=== PATIENT | male | born 1945 | race Caucasian/White ===

== ENCOUNTER → 2017-03-23 12:55 | Outpatient (CLI) | payer MEDICARE | END | disposition home or self-care (01) | LOC: D.RAD 12:55 | DX: N39.0 Urinary tract infection, site not specified (principal) ==

== ENCOUNTER → 2017-04-12 10:43 | Outpatient (CLI) | payer MEDICARE ==
[~2017-04-12] VITALS: Ht 190.5 cm; Wt 112.3 kg
--- NOTE | ~2017-04-12 | HEMODYNAMI ---
PATIENT:MARISELA SMITH MEDICAL RECORD: [id number] : 47 LOCATION:[facility] ADMISSION DATE: 04/12/17 Generatedon:04/12/201713:04 Patient name: MARISELA SMITH Patient #: [id number] SSN: : 1945 Date of study: 04/12/2017 Page: Of Hemodynamic Procedure Report Patient Data Patient Demographics Procedure consent was obtained First Name: MARISELA Gender: Male Last Name: LUIS : 1945 [facility] Initial: JOSEPH Age: 71 year(s) Patient #: [id number] Race: Unknown Additional ID: [id number] Contact details [address]: [address] [place] [address] State: [place] City: [place] Zip code: [address] Admission Admission Data Admission Date: 04/12/2017 Admission Time: 10:43 Procedure Procedure Types Cath Procedure Diagnostic Procedure LHC LHC w/Coronaries PCI Procedure Coronary Stent Initial Miscellaneous Procedures Moderate Sedation up to 30 minutes Procedure Description Procedure Date Procedure Date: 04/12/2017 Procedure Start Time: 12:30 Procedure End Time: 13:03 Procedure Staff Name Function Flaco Escobar MD Performing Physician Lonny Chin RT Scrub Cait Acevedo RN Nurse Dmitry Lalfeur RT Monitor Procedure Data Cath Procedure Fluoroscopy Diagnostic fluoroscopy Total fluoroscopy Time: 4.2 time: 4.2 min min Diagnostic fluoroscopy Total fluoroscopy dose: 777 dose: 777 mGy mGy Contrast Material Contrast Material Type Amount (ml) Isovue 300 99 Entry Location Entry Primary Successful Side Size Upsize Upsize Entry Closure Succes sful Closure Location (Fr) 1 (Fr) 2 (Fr) Remarks Device Remarks Femoral Right 5 Fr 6 Fr Exoseal artery Short Estimated blood loss: 10 ml Diagnostic catheters Device Type Used For End Catheter Placement Cordis 5Fr JL 4.0 Procedure Catheter (MP) Cordis 5Fr 3DRC Catheter Procedure (MP) Cordis 5Fr Pigtail Procedure Catheter (MP) Procedure Complications No complications Procedure Medications Medication Administration Route Dosage Oxygen NC 2 l/min Heparin Flush Bag added to field 2 bags (1000units/500ml NS) Lidocaine 2% added to field 20 Radial Cocktail added to field 1 syringe (Verapomil 2mg/Nitro 400mcg/Heparin 1500units) Versed I.V. 1 mg Fentanyl I.V. 50 mcg Versed I.V. 1 mg Fentanyl I.V. 50 mcg Heparin Bolus I.V. 5000 units Integrilin (Bolus I.V. 10.2 ml 2mg/ml) Plavix P.O. 600 mg Hemodynamics Rest Heart Rate: 54 (bpm) Pressure Samples Time Site Value (mmHg) Purpose Heart Use Rate(bpm) 12:43 LV 133/-13,14 Snapshot 47 12:44 AO 149/70(99) Pullback 54 12:44 LV 132/6,12 Pullback 54 12:48 AO 154/70(101) Snapshot 50 Gradients Valve Time Site 1 Site 2 Mean SEP/DFP Peak To Heart Use (mmHg) (sec/min) Peak Rate (mmHg) (bpm) Aortic 12:44 LV AO 0 4 0 54 132/6,12 149/70(99) Calculations Valve P-P Mean Valve Index Valve Source Name Gradient Area Flow (cm2) Aortic 0 0 0 0 Snapshots Pre Cath Intra NCS Post Cath Vital Signs Time Heart Resp SPO2 etCO2 EW5ytoc NIBP (mmHg) Rhythm Pain Sedation Rate (ipm) (%) (mmHg) (mmHg) Status Level (bpm) 12:16:39 56 15 99 0 0 169/85(137) SB 0 (11) 10(A) , No pain 12:21:38 52 16 100 0 0 Measuring SB 0 (11) 10(A) , No pain 12:22:01 60 16 99 0 0 172/79(114) SB 0 (11) 10(A) , No pain 12:26:25 49 16 98 0 0 154/81(111) SB 0 (11) 10(A) , No pain 12:30:39 47 16 97 0 0 133/81(100) SB 0 (11) 9(A) , No pain 12:34:57 46 16 95 0 0 129/78(90) SB 0 (11) 9(A) , No pain 12:39:56 46 17 96 0 0 Measuring SB 0 (11) 9(A) , No pain 12:40:02 46 19 96 0 0 131/66(85) SB 0 (11) 9(A) , No pain 12:44:22 45 18 98 0 0 127/69(107) SB 0 (11) 9(A) , No pain 12:49:21 47 19 99 0 0 Measuring SB 0 (11) 9(A) , No pain 12:49:25 47 19 99 0 0 130/74(87) SB 0 (11) 9(A) , No pain 12:53:41 53 18 99 0 0 142/79(92) SB 0 (11) 10(A) , No pain 12:58:02 54 8 99 0 0 143/81(93) SB 0 (11) 10(A) , No pain 13:02:19 52 13 98 0 0 121/71(97) SB 0 (11) 10(A) , No pain Medications Time Medication Route Dose Verified Delivered Reason Note s Effectiveness by by 12:17:45 Oxygen NC 2 l/min Flaco Cait Per physician [facility] Landry Acevedo RN, MD 12:17:54 Heparin Flush added 2 bags Flaco Flaco used for [facility] to [facility] procedure (1000units/500ml field MD HAYES NS) 12:18:03 Lidocaine 2% added 20ml Flaco Flaco used for to vial [place] [facility] procedure field MD HAYES 12:18:11 Radial Cocktail added 1 Flaco Flaco used for (Verapomil to syringe [place] [facility] procedure 2mg/Nitro field MD HAYES 400mcg/Heparin 1500units) 12:24:09 Versed I.V. 1 mg Flaco Cait for sedation [facility] Landry Acevedo RN, MD 12:24:15 Fentanyl I.V. 50 mcg Flaco Cait for anxiety [facility] Landry Acevedo RN, MD 12:27:11 Versed I.V. 1 mg Flaco Cait for sedation [facility] Land[facility] Acevedo RN, MD 12:27:14 Fentanyl I.V. 50 mcg Flaco Cait for anxiety [facility]. Landry Acevedo RN, MD 12:47:28 Heparin Bolus I.V. 5000 Flaco Cait for dose units [facility] Landry Acevedo RN anticoagulation verified MD with dr valdes 12:50:22 Integrilin I.V. 10.2 ml Flaco Cait for wast ed (Bolus 2mg/ml) [facility] Landry Acevedo RN antiplatelet 9.8 mL MD therapy 12:54:48 Plavix P.O. 600 mg Flaco Chavira for [facility] Landry Acevedo RN antiplatelet therapy Procedure Log Time Note 11:50:00 Lonny Chin RT(R) sent for patient. Start room use. 12:00:52 ACC Patient presents with Stable Angina CCS Anginal Class 2--Slight limitation of ordinary activity. 12:00:54 Diagnostic Cath status Elective 12:01:02 Time tracking: Regular hours 12:01:06 Plan of Care:Hemodynamics will remain stable., Cardiac rhythm will remain stable., Comfort level will be maintained., Respiratory function will remain adequate., Patient/ family verbilizes understanding of procedure., Procedure tolerated without complication., Recovers from procedure without complications.. 12:10:33 Patient received from Pre/Post Procedure Room to CCL 1 Alert and oriented. Tansferred to table in Supine position. 12:14:34 Warm blankets applied, and veronica hugger turned on for patient comfort. 12:14:35 Correct patient and procedure confirmed by team. 12:14:36 Signed procedure consent form obtained from patient. 12:14:37 ECG and BP/O2 sat monitors applied to patient. 12:15:24 Vital chart was started 12:17:45 Oxygen 2 l/min NC was administered by Cait Acevedo RN; Per physician; 12:17:54 Heparin Flush Bag (1000units/500ml NS) 2 bags added to field was administered by Flaco Escobar MD; used for procedure; 12:18:03 Lidocaine 2% 20ml vial added to field was administered by Flaco Escobar MD; used for procedure; 12:18:11 Radial Cocktail (Verapomil 2mg/Nitro 400mcg/Heparin 1500units) 1 syringe added to field was administered by Flaco Escobar MD; used for procedure; 12:21:42 Baseline sample Acquired. 12:21:46 Rhythm: sinus bradycardia 12:21:48 Full Disclosure recording started 12:22:01 H&P Date Dictated: 03/29/2017 Within 30 days and on chart., H&P Addendum completed by physician on day of procedure. (MUST COMPLETE FOR ALL OUTPATIENTS). 12:22:01 Pre-procedure instructions explained to patient. 12:22:03 Pre-op teaching completed and patient verbalized understanding. 12:22:05 Family in waiting room. 12:22:06 Patient NPO since Midnight. 12:22:08 Is the patient allergic to Iodine/contrast media? No. 12:22:36 Is patient on blood thinner?No 12:22:38 Patient diabetic? No. 12:22:41 Previous problem with sedation/anesthesia? No ? 12:22:42 Snore? Yes 12:22:43 Sleep apnea? No 12:22:44 Deviated septum? No 12:22:45 Opens mouth fully? Yes 12:22:46 Sticks out tongue? Yes 12:22:51 Airway obstruction? No Asthma 12:22:55 Dentures? No ? 12:22:59 Pre procedure: right dorsailis pedis pulse 1+ Palpable, but thready & weak; easily obliterated 12:23:01 Modified Reji's test Ulnar < 7 seconds 12:23:02 Patient pain scale 0/10 ?. 12:23:06 IV patent on arrival in left forearm with 0.9% NaCl at [facility]. 12:23:08 Lab results completed and on chart. 12:23:11 Right Radial & Right Groin area was prepped with chlora-prep and draped in sterile fashion 12:23:13 Alarms reviewed by R. N. 12:23:13 Sharps counted by scrub and verified by R.N. 12:23:14 --------ALL STOP TIME OUT------ 12:23:15 Final Timeout: patient, procedure, and site verified with staff and physician. All members of the team are in agreement. 12:23:17 Right groin site verified by team. 12:23:20 Physical assessment completed. ASA score P 2 - A patient with mild systemic disease as per Flaco Escobar MD. 12:23:23 Sedation plan: IV Moderate Sedation Versed, Fentanyl 12:23:46 Baseline sample Acquired. 12:24:09 Versed 1 mg I.V. was administered by Cait Acevedo RN; for sedation; 12:24:15 Fentanyl 50 mcg I.V. was administered by Cait Acevedo RN; for anxiety; 12:24:34 Use device set Radial Dx 12:24:35 MBrace Wrist Support opened to sterile field. 12:24:36 Acist Hand Control opened to sterile field. 12:24:37 Acist Manifold opened to sterile field. 12:24:38 Acist Syringe opened to sterile field. 12:24:38 Medline Cath Pack opened to sterile field. 12:24:38 Bag Decanter opened to sterile field. 12:24:40 Tegaderm 4 x 4 opened to sterile field. 12:24:47 St Kendall 260cm J .035 wire opened to sterile field. 12:27:11 Versed 1 mg I.V. was administered by Cait Acevedo RN; for sedation; 12:27:14 Fentanyl 50 mcg I.V. was administered by Cait Acevedo RN; for anxiety; 12:30:51 Procedure started. 12:30:58 Local anesthetic to right radial artery with Lidocaine 2% by Flaco Escobar MD.INITIAL ACCESS ONLY 12:31:47 Zero performed for pressure channel P1 12:35:06 Unable to advance wire due to radial loop. Moving to femoral approach. 12:35:38 Local anesthetic to right femoral artery with Lidocaine 2% by Flaco Escobar MD.ADDITIONAL ACCESS 12:35:56 Terumo 5Fr [place] Sheath opened to sterile field. 12:36:16 Use device set Multipack Set 12:36:18 Diagnostic Infinity 5Fr Multipack catheter opened to sterile field. 12:36:42 A 5 Fr sheath was inserted into the Right Femoral artery 12:39:04 A Cordis 5Fr JL 4.0 Catheter (MP) was advanced over the wire and used for Procedure. 12:39:59 LCA angiography performed. 12:40:01 Catheter exchanged over wire. 12:40:06 A Cordis 5Fr 3DRC Catheter (MP) was advanced over the wire and used for Procedure. 12:41:29 RCA angiography performed. 12:42:05 Catheter exchanged over wire. 12:42:17 A Cordis 5Fr Pigtail Catheter (MP) was advanced over the wire and used for Procedure. 12:43:00 Terumo 6Fr [place] Sheath opened to sterile field. 12:43:00 Merit BasixCompak Inflation Kit opened to sterile field. 12:43:00 Self [place] 300cm 0.014 guide wire opened to sterile field. 12:43:01 Medtronic Launcher 6Fr JL 4.0 guide catheter opened to sterile field. 12:43:55 LV angiography performed. 12:43:56 LV gram done using BILL 12:44:06 EF : 55 % 12:44:08 LV hemodynamics recorded. 12:44:13 Injector settings: Ml/sec: 10, Volume: 20, 12:44:15 Catheter exchanged over wire. 12:45:14 Sheath upsized to a 6 Fr Short. 12:45:50 ACC PCI Site: [facility] has 80% stenosis. 12:45:54 ACC Pre-intervention ROME Flow is 3. 12:47:17 6 Fr JL 4 guide catheter was inserted over the wire 12:47:28 Heparin Bolus 5000 units I.V. was administered by Cait Acevedo RN; for anticoagulation; dose verified with dr valdes 12:48:38 [place] wire advanced. 12:50:22 Integrilin (Bolus 2mg/ml) 10.2 ml I.V. was administered by Cait Acevedo RN; for antiplatelet therapy; wasted 9.8 mL 12:50:27 Wire advanced across lesion. 12:51:53 Inflation Number: 1 A Fik Storestronic Integrity 2.5 X 18 stent was prepped and advanced across the Mid CX. The stent was deployed at 14 SHELDON for 0:45 (min:sec). 12:52:05 ACC Post-intervention ROME Flow is 3. 12:52:06 Stent catheter was removed intact over wire. 12:52:07 Wire removed. 12:52:07 Guide catheter removed. 12:52:17 Cordis 6Fr Exoseal opened to sterile field. 12:52:44 Sheath removed intact; hemostasis achieved with Exoseal to the Right Femoral artery. 12:52:47 Procedure ended.(Physican Out) 12:54:48 Plavix 600 mg P.O. was administered by Cait Acevedo RN; for antiplatelet therapy; 12:57:36 Fluoroscopy time 04.20 minutes. 12:57:41 Flurop Dose total: 777 12:57:41 Fluoroscopy dose: 777 mGy 12:57:54 Contrast amount:Isovue 300 99ml. 12:57:59 Sharps counted by scrub and verified by R.N. 12:58:12 Insertion/operative site no bleeding no hematoma. 12:58:15 Post-op/insertion site Right Femoral artery dressed using a 4 x 4 and Tegaderm. 12:58:20 Post Procedure Pulses reassessed and unchanged 12:58:23 Post-procedure physical assessment completed. ASA score P 2 - A patient with mild systemic disease as per Flaco Escobar MD. 12:58:26 Post procedure rhythm: unchanged. 12:58:29 Estimated blood loss: 10 ml 12:58:31 Post procedure instruction explained to patient.Patient verbalizes understanding. 12:58:32 Patient needs reinforcement of post procedure teaching. 12:58:49 Procedure type changed to Cath procedure, Diagnostic procedure, LHC, LHC w/Coronaries, PCI procedure, Coronary Stent Initial, Miscellaneous Procedures, Moderate Sedation up to 30 minutes 13:00:13 Procedure and supply charges have been captured, reviewed, submitted and are correct. 13:00:17 Procedure Complication : No complications 13:03:06 Vital chart was stopped 13:03:07 See physician's report for complete and final results. 13:03:10 Report given to Pre/Post Procedure Room. 13:03:14 Patient transfered to Pre/Post Procedure Room with Stretcher. 13:03:17 Procedure ended. 13:03:17 Full Disclosure recording stopped 13:03:21 End room use (Document Last) Intervention Summary Intervention Notes Time ActionType Lesion and Equipment Action# Pressure Duration Attributes Used 12:51:53 Place stent Mid CX Medtronic 1 14 00:45 Integrity 2.5 X 18 stent Device Usage Item Name Manufacture Quantity Catalog Hospital Part Current Minimal Lot# / Number Charge Number Stock Stock Serial# Code [facility] 1 140-0250-00 485655 25942 [id number] 5 Wrist Vascular Support Dynamics Acist Hand Acist 1 46325 925773 571545 308712 5 Control Medical Systems Inc Acist Acist 1 97304 973850 673216 108543 5 Manifold Medical Systems Inc Acist Acist 1 24915 498585 593759 529508 20 Syringe Medical Systems Inc Medline Cardinal 1 [id number] 280504 99840 742386 5 Cath Pack Health Bag Microtek 1 2001S 509117 97371 603686 5 Decanter Medical Inc. Tegaderm 4 3M 1 1626W 222532 848435 272288 [address] Kendall 1 959075 564578 619786 198385 30 260cm J .035 wire Terumo 5Fr Terumo 1 [id number] 807296 516679 147054 40 Buffalo Sheath Diagnostic Cardinal 1 [id number] 852646 70684 244568 30 Infinity Health 5Fr Multipack catheter Cordis 5Fr Cardinal 1 668451 5 JL 4.0 Health Catheter (MP) Cordis 5Fr Cardinal 1 617882 5 3DRC Health Catheter (MP) Cordis 5Fr Cardinal 1 246384 5 Pigtail Health Catheter (MP) Terumo 6Fr Terumo 1 SCI174 656295 841881 042099 40 [place] Sheath Merit Merit 1 [id number] 916101 610512 922430 15 netprice.com Medical Inflation Kit Self Self 1 [id number] 678583 078976 701085 1 [place] Vascular 300cm 0.014 guide wire Medtronic Medtronic 1 [id number] 877990 01508 841117 1 Launcher 6Fr JL 4.0 guide catheter Medtronic Medtronic 1 [id number] 670318 043363 5 [id number] Integrity 2.5 X 18 stent Cordis 6Fr Cardinal 1 EX600 744222 177857 598640 10 [facility] Tang [employer] Signature Audit [place] Stage Time Signature Unsigned Intra-Procedure 04/12/2017 Dmitry Lafleur 1:04:03 PM RT(R) Signatures Monitor : Dmitry Lafleur RT Signature : Date : Time : [address] [address]
[~2017-04-12 10:43] MED LIST: BAYER CHEWABLE81 MG PO; FLOMAX0.4 MG PO; LIPITOR20 MG PO; PLAVIX75 MG PO; PROSCAR5 MG PO; SYNTHROID50 MCG PO
[2017-04-12 11:09] VITALS: BP 181/87; Ht 190.5 cm; Wt 112.3 kg
[2017-04-12 11:25] LABS: BASOPHILS 0.3 % (0-2); EOSINOPHILS 1.9 % (0-7); HEMATOCRIT 47.3 % (42.0-54.0); HEMOGLOBIN 16.1 g/dL (13.5-17.5); IMMATURE GRANULOCYTES 0.3 % (0-5); LYMPHOCYTES 21.6 % (15-50); MCH 30.7 pg (26.0-34.0); MCV 90.3 fL (80.0-100.0); MEAN PLATELET VOLUME 11.6 fL (7.4-10.4); MONOCYTES 7.2 % (2-11); NEUTROPHILS 68.7 % (40-80); PLATELET COUNT 190 10x3/uL (130-400); RBC 5.24 10x6/uL (4.20-6.10); RDW 13.1 % (11.5-14.5); WBC 7.4 10x3/uL (4.8-10.8)
[2017-04-12 11:44] LABS: ANION GAP 13.1 mmol/L (8-16); CALCIUM 9.9 mg/dL (8.5-10.1); CARBON DIOXIDE 26.9 mmol/L (21.0-32.0); CREATININE - SERUM 1.2 mg/dL (0.6-1.3)
--- NOTE | 2017-04-12 13:28 | NUR ---
TR BAND TO R/WRIST CDI NO BLEEDING NO HEMATOMA NOTED. 6 FR EXOSEAL R/GROIN CDI NO BLEEDING NO HEMATOMA NOTED. SB RATE 46 BP117/56 CHEST PAIN DENIED FAMILY AT SIDE
--- NOTE | 2017-04-12 13:54 | NUR ---
SB RATE 46 CHEST PAIN DENIED. TR BAND TO R/WRIST CDI NO BLEEDING NO HEMATOMA NOTED. 6 FR EXOSEAL R/GROIN CDI NO BLEEDING NO HEMATOMA NOTED. TOLERATING ORAL FLUIDS WITH NAUSEA DENIED
--- NOTE | 2017-04-12 14:21 | NUR ---
SANDWICH AND SODA TO BEDSIDE. VSS WITH CHEST PAIN DENIED
--- NOTE | 2017-04-12 15:05 | NUR ---
RESTING QUIELTY WITH EYES CLOSED NO DISTRESS NOTED. VSS WILL MONITOR
--- NOTE | 2017-04-12 15:37 | NUR ---
NO CHANGE IN ASSESSMENT VSS WITH NO COMPLAINTS
--- NOTE | 2017-04-12 15:58 | NUR ---
2 CC AIR REMOVED FROM TR BAND WITH NO BLEEDING NO HEMATOMA NOTED. CHEST PAIN IS DENIED
--- NOTE | 2017-04-12 16:19 | NUR ---
REPOSITIONED TO SITTING WITH HOB UP 30 DEGREES. R/GROIN CDI NO BLEEDING NOTED. 2 CC AIR REMOVED FROM TR BAND WITH NO BLEEDING NO HEMATOMA NOTED. CHEST PAIN IS DENIED VSS
--- NOTE | 2017-04-12 16:40 | NUR ---
PIV REMOVED WITH DRESSING APPLIED. TR BAND REMOVED WITH DRESSING APPLIED. NO BLEEDING NO HEMATOMA NOTED. PATIENT DENIED CHEST PAIN UP TO GET DRESSED FOR DISCHARGE HOME WITH AT SIDE
--- NOTE | 2017-04-12 16:55 | NUR ---
VERBAL AND WRITTEN DISCHARGE GONE OVER WITH PATIENT AND BOTH VERBALIZED UNDERSTANDING. CHEST PAIN IS DENIED. 6 FR EXOSEAL R/GROIN CDI. LEFT VIA WC TO PARKING FOR TO DRIVE HOME
--- NOTE | 2017-04-13 09:47 | OP ---
PATIENT NAME: MARISELA SMITH MEDICAL RECORD: [id number] :47 LOCATION:D.[facility] ADMISSION DATE: SURGEON: SHIVA LEWIS MD DATE OF OPERATION: 04/12/2017 PROCEDURE: Left heart catheterization, selective coronary angiography, right femoral artery approach. CATHETERS: A 5-[place] sheath, 5/4 left and right Ganga, 5/4 pig. The procedure was well tolerated. The patient returned to mari, sheath removed. We proceeded immediately to PTCA stenting of the circumflex. FINDINGS: Left ventriculography in 30-degree BILL view: Normal wall motion and normal systolic function. CORONARY ANATOMY: LEFT MAIN: Left main is free of disease. LAD: LAD is free of disease in the diagonal system. CIRCUMFLEX: Has about 80% stenosis in a true OM just after the takeoff of the AV groove circumflex. RIGHT CORONARY ARTERY: Dominant artery, gives rise to PDA, free of disease. IMPRESSION: Normal systolic function, single-vessel disease involving circumflex. PLAN: Intervention of this vessel momentarily. DESCRIPTION OF PROCEDURE: A 5-[place] sheath was changed for a 6-[place] sheath. A JL4 guiding catheter provided good guide catheter support followed by a 300 cm [place] XT wire was placed across the occluded circumflex to this portion of vessel. Stent deployed was a 2.5 x 18 mm Integrity nondrug-eluting stent up to 14 atmospheres. Final injection shows excellent resolution of 80% diffuse stenosis, no significant residual. ROME flow was 3 throughout the procedure. Integrilin was used during the case. Sheath was closed with ExoSeal device. Plavix was loaded in the lab. TRANSINT:[id number] Voice Confirmation ID: [id number] DOCUMENT ID: [id number] SHIVA LEWIS MD at 0947 CC: [id number] DICTATION DATE: 04/12/17 1300 NEEDLE LOOM SETTER: 04/12/173 DEP CLI 04/12/17 [place] [place] [address]
== END | disposition home or self-care (01) ==
LOC: D.CATH 10:43
PROVIDERS: Internal Medicine Interventional Cardiology
DX: I25.119 Atherosclerotic heart disease of native coronary artery with unspecified angina pectoris (principal)

== ENCOUNTER 2017-05-20 05:55 | Day surgery (SDC) | payer MEDICARE ==
[2017-05-19 14:12] LABS: HEMATOCRIT 44.9 % (42.0-54.0); HEMOGLOBIN 15.1 g/dL (13.5-17.5); MCH 30.9 pg (26.0-34.0); MCHC 33.6 g/dL (31.0-37.0); RBC 4.88 10x6/uL (4.20-6.10); RDW 13.7 % (11.5-14.5); WBC 7.3 10x3/uL (4.8-10.8)
[~2017-05-20] VITALS: Ht 190.5 cm; Wt 108.9 kg
[2017-05-20 07:00] VITALS: BP 173/80; Ht 190.5 cm; Wt 108.9 kg
--- NOTE | 2017-05-20 10:45 | NUR ---
550CC OF PINK URINE IN BAG ON ADMIT
--- NOTE | 2017-05-20 11:17 | NUR ---
TRANSFERED TO BED IN OUTPATIENT HE REPORTED NAUSEA BACK TO MY CARE GAVE CRISTINA 4MG IV @1115. CARE RETURNED BACK TO OUTPATIENT
--- NOTE | 2017-05-20 13:10 | NUR ---
ATTEMPTED TO AMBULATE WITHOUT SUCCESS. RIGHT LEG IS STILL TOO NUMB.
--- NOTE | 2017-05-20 14:02 | NUR ---
STOOD AT SIDE OF BED, ABLE TO STAND BUT STATES CANNOT WALK YET. INSTRUCTED ON SITTING ON SIDE OF BED AND MOVING TOES TOWARD FACE AND EXERCISING LEGS. PEPSI CALLED FOR PER REQUEST. DENIES PAIN OR NAUSEA. SHERMAN EMPTIED OF 600ML OF BLOOD TINGED URINE, NO CLOTS NOTED.
--- NOTE | 2017-05-20 14:30 | NUR ---
AMBULATED TO BATHROOM DOOR AND BACK, GAIT STEADY. IV REMOVED INTACT. DISCHARGE INSTRUCTIONS GIVEN. DISCHARGED HOME VIA WC.
== END 2017-05-20 14:30 | disposition home or self-care (01) ==
LOC: D.OPS 05:55 → D.PAN 07:50 → D.OPS 08:00 → D.PAN 08:00 → D.OPS 08:15
PROVIDERS: Anesthesiology
DX: N40.0 Benign prostatic hyperplasia without lower urinary tract symptoms (principal); N32.89 Other specified disorders of bladder; N21.0 Calculus in bladder; Z01.812 Encounter for preprocedural laboratory examination

== ENCOUNTER → 2018-10-07 10:14 | Outpatient (CLI) | payer MEDICARE | END | disposition home or self-care (01) | LOC: D.LAB 10:09 | DX: R97.20 Elevated prostate specific antigen [PSA] (principal) ==

== ENCOUNTER 2018-11-28 12:46 | Emergency (ER) | payer MEDICARE ==
[~2018-11-28] VITALS: Ht 190.5 cm; Wt 100.0 kg
[2018-11-28 12:52] VITALS: Ht 190.5 cm; Wt 100.0 kg
[2018-11-28 13:37] LABS: BASOPHILS 0.4 % (0-2); EOSINOPHILS 1.7 % (0-7); HEMOGLOBIN 15.1 g/dL (13.5-17.5); IMMATURE GRANULOCYTES 0.3 % (0-5); LYMPHOCYTES 13.4 % (15-50); MCH 30.9 pg (26.0-34.0); MCHC 34.3 g/dL (31.0-37.0); MEAN PLATELET VOLUME 11.7 fL (7.4-10.4); NEUTROPHILS 76.2 % (40-80); PLATELET COUNT 221 10x3/uL (130-400); RBC 4.89 10x6/uL (4.20-6.10); RDW 13.3 % (11.5-14.5); WBC 12.1 10x3/uL (4.8-10.8)
[2018-11-28 13:51] LABS: ALBUMIN 3.4 g/dL (3.4-5.0); ANION GAP 13.9 mmol/L (8-16); BILIRUBIN - TOTAL 1.01 mg/dL (0.2-1.3); CALCIUM 9.6 mg/dL (8.5-10.1); CARBON DIOXIDE 26.4 mmol/L (21.0-32.0); CREATININE - SERUM 1.2 mg/dL (0.6-1.3); POTASSIUM - SERUM 4.3 mmol/L (3.5-5.1); PROTEIN - SERUM 7.2 g/dL (6.4-8.2)
[2018-11-28 14:18] LABS: APPEARANCE CLEAR (CLEAR); BACTERIA FEW /hpf (NONE SEEN); BILIRUBIN NEGATIVE (NEGATIVE); COLOR YELLOW (YELLOW); EPITHELIAL CELLS OCC /hpf (0-5); GLUCOSE NEGATIVE (NEGATIVE); KETONE NEGATIVE (NEGATIVE); NITRITE NEGATIVE (NEGATIVE); PROTEIN NEGATIVE (NEGATIVE); RED CELLS - URINE OCC /hpf (0-5); SPECIFIC GRAVITY 1.015 (1.005-1.020); UROBILINOGEN NORMAL (NORMAL); WHITE CELLS - URINE RARE /hpf (0-5)
[2018-11-28] MEDS ORDERED: NORCO 5/325 TAB1 TAB PO (14:27)
[2018-11-28 14:41] VITALS: BP 150/88
[2018-12-05] MEDS ORDERED: NORVASC5 MG PO (10:18)
[2018-12-05] MEDS ORDERED: VENTOLIN HFA18 GM INH (10:19)
[2018-12-05] MEDS ORDERED: ZOFRAN4 MG PO (10:33)
== END 2018-11-28 14:42 | disposition home or self-care (01) ==
LOC: D.ER 12:46
PROVIDERS: Emergency Medicine
DX: C61 Malignant neoplasm of prostate (principal); C78.7 Secondary malignant neoplasm of liver and intrahepatic bile duct; I10 Essential (primary) hypertension

== ENCOUNTER → 2018-11-29 09:38 | Outpatient (CLI) | payer MEDICARE ==
[2018-11-28 12:52] VITALS: BMI 27.5
[~2018-11-29 09:38] MED LIST changes: +NORCO 5/325 TAB1 TAB PO; +NORVASC5 MG PO; +VENTOLIN HFA18 GM INH; +ZOFRAN4 MG PO
== END | disposition home or self-care (01) ==
LOC: D.LAB 09:38
DX: R97.20 Elevated prostate specific antigen [PSA] (principal); Z12.5 Encounter for screening for malignant neoplasm of prostate

== ENCOUNTER → 2018-11-30 10:22 | Outpatient (CLI) | payer MEDICARE ==
[2018-11-28 12:52] VITALS: BMI 27.5
[2018-11-30 11:27] LABS: ALBUMIN 3.7 g/dL (3.4-5.0); BILIRUBIN - DIRECT 0.29 mg/dL (0.00-0.30); BILIRUBIN - INDIRECT 0.65 mg/dL (0.00-1.00); BILIRUBIN - TOTAL 0.94 mg/dL (0.2-1.3); PROTEIN - SERUM 7.2 g/dL (6.4-8.2)
== END | disposition home or self-care (01) ==
LOC: D.LAB 10:22
PROVIDERS: Urology
DX: R16.0 Hepatomegaly, not elsewhere classified (principal)

== ENCOUNTER 2018-12-06 05:20 | Day surgery (SDC) | payer MEDICARE ==
[2018-12-05 11:38] LABS: HEMATOCRIT 44.6 % (42.0-54.0); HEMOGLOBIN 15.6 g/dL (13.5-17.5); MCH 31.2 pg (26.0-34.0); MCV 89.2 fL (80.0-100.0); MEAN PLATELET VOLUME 11.6 fL (7.4-10.4); RDW 13.2 % (11.5-14.5); WBC 8.6 10x3/uL (4.8-10.8)
[~2018-12-06] VITALS: Ht 190.5 cm; Wt 111.1 kg
[2018-12-06 06:23] VITALS: BP 103/79; Ht 190.5 cm; Wt 111.1 kg
--- NOTE | 2018-12-06 09:21 | OP ---
PATIENT NAME: MARISELA SMITH MEDICAL RECORD: [id number] :47 LOCATION:[facility] ADMISSION DATE: SURGEON: BYRON SCHWARZ MD DATE OF OPERATION: 12/06/2018 SURGEON: Byron Schwarz MD ANESTHESIA: TIVA by Charles Huerta CRNA PROCEDURE: Transrectal ultrasound and prostate biopsy. FINDINGS: 54 gram prostate with intraprostatic stones, right-sided hypoechoic areas. SPECIMENS: Prostate biopsy cores. DIAGNOSIS: Elevated PSA 38.75 on 11/29/2018. BLOOD LOSS: Minimal. CLINICAL HISTORY: This is a 73-year-old male, who is seen with a rising PSA. His PSA was 2.8 in 03/27/2017. At that time, he had urinary retention and he underwent a GreenLight TURP. Previously, he had a GreenLight TURP in [place], [place] in 2007. He had been on finasteride and tamsulosin for a long time prior to that. He also had 2 negative prostate biopsies in [place]. The last one was in 2012. There is no family history of prostate cancer. The PSA since 2016 has steadily risen. It was 7.2 in 03/2018 and 28.3 in 09/2018. Finally, in 11/29/2018, it was 38.75. When the PSA was found to have risen, he was offered a transrectal ultrasound and prostate biopsy that the patient kept wanting to check it again and check it again. In the meantime, he would be off to [place] for family vacations. Recently, he developed epigastric and right-sided pain with weakness. He went to the Emergency Room and a CT scan of the abdomen and pelvis showed multiple liver nodules consistent with metastatic cancer and enlarged prostate was also seen. Liver function tests showed an elevated alkaline phosphatase of 167 and ALT is elevated at 69. He is not jaundiced. He comes today for transrectal ultrasound and prostate biopsy for tissue diagnosis. He will also be getting a metastatic workup including a whole body CT scan and CT of the chest. He is not allergic to any medications. He was given Ancef general education professor to the OR. DESCRIPTION OF PROCEDURE: The patient was given IV sedation. He was then placed into dorsal lithotomy position. He was then prepped and draped. The transrectal ultrasound probe was introduced. He has a very tall prostate in terms of anterior-posterior dimension. The prostate is not very long. The prostate size was estimated at 54 grams. Sextant biopsies were obtained with at least 3 specimens from each sextant. Once we obtained all the specimens the procedure was terminated. I will see the patient in followup next week to go over the results with him. TRANSINT:[id number] Voice Confirmation ID: [id number] DOCUMENT ID: [id number] OPERATIVE REPORT [id number] MARISELA SMITH ROBERT S MD at 0921 CC: [id number] DICTATION DATE: 12/06/18 0804 DIRECTOR OF PRODUCT DESIGN: 12/06/18 0906 [facility] [address] [place] [address]
--- NOTE | 2018-12-06 10:06 | NUR ---
0945 UP TO BATHROOM. AMBULATORY WITHOUT DIFFICULTY. VOIDED URINE WITH BRIGHT RED NOTED WELL CLOT. RECTAL PACKING IN PLACE. IV DC'ED WITH CATH INTACT. NO BLEEDING @ SITE. DRESSING. Denise FENG R.N. [id number] DRESSED, AWAKE & ALERT. GIVEN DISCHARGE INFORMATION INCLUDING: RX: NORCO 5/325MG, MED REC, POST PROSTATE BIOPSY D/C INSTRUCTIONS, [facility] D/C INSTRUCTIONS, & RTC APPT. PT & MRS. SMITH VOICED UNDERSTANDING. TO PRIVATE CAR PER WHEELCHAIR BY VOLUNTEER. HOME WITH MRS. SMITH. Denise FENG R.N.
== END 2018-12-06 09:30 | disposition home or self-care (01) ==
LOC: D.OPS 05:20 → D.PAN 07:30 → D.OPS 07:30 → D.PAN 12:45 → D.OPS 12:45 → D.PAN 13:00
PROVIDERS: Anesthesiology
DX: R97.20 Elevated prostate specific antigen [PSA] (principal); Z01.812 Encounter for preprocedural laboratory examination

== ENCOUNTER 2018-12-14 06:50 | Outpatient (CLI) | payer MEDICARE ==
[~2018-12-14] VITALS: Ht 190.5 cm; Wt 111.4 kg
[2018-12-14 07:32] LABS: BASOPHILS 0.3 % (0-2); EOSINOPHILS 2.1 % (0-7); HEMATOCRIT 43.3 % (42.0-54.0); HEMOGLOBIN 14.9 g/dL (13.5-17.5); IMMATURE GRANULOCYTES 0.4 % (0-5); LYMPHOCYTES 18.3 % (15-50); MCH 30.8 pg (26.0-34.0); MCHC 34.4 g/dL (31.0-37.0); MCV 89.5 fL (80.0-100.0); MEAN PLATELET VOLUME 10.7 fL (7.4-10.4); MONOCYTES 7.8 % (2-11); NEUTROPHILS 71.1 % (40-80); PLATELET COUNT 279 10x3/uL (130-400); RBC 4.84 10x6/uL (4.20-6.10); RDW 13.1 % (11.5-14.5); WBC 8.9 10x3/uL (4.8-10.8)
[2018-12-14 07:42] LABS: ANION GAP 14.4 mmol/L (8-16); APTT 33.2 SECONDS (22.8-39.4); CALCIUM 9.5 mg/dL (8.5-10.1); CARBON DIOXIDE 25.9 mmol/L (21.0-32.0); CREATININE - SERUM 1.2 mg/dL (0.6-1.3); INR 1.03 (0.85-1.17); POTASSIUM - SERUM 4.3 mmol/L (3.5-5.1)
[2018-12-14 07:54] VITALS: BP 165/81; Ht 190.5 cm; Wt 111.4 kg
--- NOTE | 2018-12-14 10:00 | NUR ---
5126 SEE POST PROCEDURE CHECKLIST FOR VITAL SIGN TRENDS
--- NOTE | 2018-12-14 10:03 | NUR ---
1000 REG BREAKFAST SERVED. AT SIDE.
--- NOTE | 2018-12-14 10:13 | NUR ---
1005 DRESSING SITE WITHOUT HEMATOMA, ATE 80% BREAKFAST.
--- NOTE | 2018-12-14 11:01 | NUR ---
1100 TO NM BY WC.
== END 2018-12-14 14:05 | disposition home or self-care (01) ==
LOC: D.SP 06:50 → D.NM 08:15 → D.SP 08:15
PROVIDERS: Specialist
DX: R16.0 Hepatomegaly, not elsewhere classified (principal)

== ENCOUNTER → 2018-12-14 18:12 | Outpatient (CLI) | payer MEDICARE ==
[2018-12-14 07:54] VITALS: BMI 30.6
== END | disposition home or self-care (01) ==
LOC: D.LABREF 18:12
DX: Z00.00 Encounter for general adult medical examination without abnormal findings (principal)

== ENCOUNTER → 2019-02-21 12:12 | Outpatient (CLI) | payer MEDICARE ==
[2018-12-14 07:54] VITALS: BMI 30.6
[~2019-02-21 12:12] MED LIST changes: +CIPRO250 MG PO
== END | disposition home or self-care (01) ==
LOC: D.LABREF 12:12
PROVIDERS: ATTEND Urology
DX: R31.0 Gross hematuria (principal)

== ENCOUNTER 2019-02-23 09:00 | Day surgery (SDC) | payer MEDICARE ==
[2019-02-22 17:43] LABS: INR 0.99 (0.85-1.17); PROTIME 12.6 SECONDS (11.6-15.0)
[2019-02-22 17:59] LABS: BASOPHILS 0.4 % (0-2); EOSINOPHILS 0.2 % (0-7); HEMATOCRIT 34.9 % (42.0-54.0); HEMOGLOBIN 11.4 g/dL (13.5-17.5); IMMATURE GRANULOCYTES 0.4 % (0-5); LYMPHOCYTES 18.3 % (15-50); MCHC 32.7 g/dL (31.0-37.0); MCV 91.8 fL (80.0-100.0); MEAN PLATELET VOLUME 10.5 fL (7.4-10.4); MONOCYTES 6.5 % (2-11); NEUTROPHILS 74.2 % (40-80); RDW 16.2 % (11.5-14.5); WBC 9.2 10x3/uL (4.8-10.8)
[2019-02-22 18:04] LABS: ALBUMIN 3.3 g/dL (3.4-5.0); ALKALINE PHOSPHATASE 112 U/L (46-116); ALT (SGPT) 43 U/L (10-68); BILIRUBIN - DIRECT 0.17 mg/dL (0.00-0.30); BILIRUBIN - INDIRECT 0.59 mg/dL (0.00-1.00); BILIRUBIN - TOTAL 0.76 mg/dL (0.2-1.3); CALC OSMOLALITY 281 mosm/kg (275-300); CALCIUM 9.1 mg/dL (8.5-10.1); CARBON DIOXIDE 26.9 mmol/L (21.0-32.0); CHLORIDE - SERUM 104 mmol/L (98-107); GLUCOSE 117 mg/dL (74-106); POTASSIUM - SERUM 4.2 mmol/L (3.5-5.1); PROTEIN - SERUM 6.4 g/dL (6.4-8.2); SODIUM 141 mmol/L (136-145); UREA NITROGEN 13 mg/dL (7-18); eGFR NON AFRICAN AMERICAN 78 mL/min (90-120)
[2019-02-22 18:33] LABS: PLATELET COUNT 192 10x3/uL (130-400)
[~2019-02-23] VITALS: Ht 190.5 cm; Wt 115.7 kg
[~2019-02-23 09:00] MED LIST changes: -CIPRO250 MG PO
[2019-02-23] MEDS ORDERED: CIPRO250 MG PO (09:20)
[2019-02-23 09:22] VITALS: BP 126/64; Ht 190.5 cm; Wt 115.7 kg
--- NOTE | 2019-02-23 14:41 | OP ---
PATIENT NAME: MARISELA SMITH MEDICAL RECORD: [id number] :47 LOCATION:D.[facility] ADMISSION DATE: SURGEON: BYRON SCHWARZ MD DATE OF OPERATION: 02/23/2019 SURGEON: Byron Schwarz MD ANESTHESIA: TIVA by [place] CRNA DIAGNOSES: Metastatic prostate cancer with gross hematuria. PROCEDURES: Cystoscopy, bladder clot evacuation, fulguration of bleeders. FINDINGS: Blood clots in the bladder. No bladder tumors. Papillary fronds of mucosa at the bladder neck were actively bleeding. SPECIMENS: None. BLOOD LOSS: None. CLINICAL HISTORY: This is a 73-year-old male, who we discovered has metastatic prostate cancer to the lungs, liver and bone. He has been in urinary retention since December 2018 and he performs self-intermittent catheterization. He also started chemotherapy for the metastatic prostate cancer in mid-December of 2018. For the past 3 days, he has been complaining of gross hematuria with passage of clots in the urine. Previously, he had a urinary tract infection with Staphylococcus epidermidis sensitive to Cipro. We obtained a urine culture in the office. So far, it is showing less than 10,000 colony forming units per mL of gram-positive cocci. He is currently on Cipro as the previous culture was sensitive to Cipro. He is not allergic to any medications. We gave him Ancef nuisance wildlife control operator to the OR today. DESCRIPTION OF PROCEDURE: The patient was given IV sedation. He was then placed into lithotomy position and prepped and draped. A 20-Amharic cystoscope with 30-degree lens was used for visualization. The penile urethra shows no constriction or obstruction. In spite of the fact that he had a GreenLight laser TURP in 2016, he has prostatic regrowth causing some degree of obstruction. However, the lateral lobes of the prostate were not having any bleeding. Going into the bladder neck, there are some papillary fronds of mucosal inflammation, which are bleeding. Going further in the bladder, there were clots in the bladder. The lens was removed and through the scope sheath, we used the Ellik evacuator to declot the bladder. Looking in the bladder afterwards, there was no active bleeding in the bladder. There are no tumors in the bladder. All of the bleeding is at the bladder neck from these papillary fronds. A Bugbee electrode was introduced and all of the bleeding sources were coagulated. At the end of the procedure, no active bleeding was seen. The bladder was emptied through the cystoscope sheath and the scope was removed. I will see him in followup in 2 weeks' time after he has finished his course of antibiotics. At that time, we will recheck his urine to make sure the infection has cleared. TRANSINT:[id number] Voice Confirmation ID: [id number] DOCUMENT ID: [id number] OPERATIVE REPORT [id number] MARISELA SMITH, BYRON Meyers MD at 1441 CC: [id number] DICTATION DATE: 02/23/19 1348 [facility] SUPERVISOR: 02/23/19 1424 REG [facility] [address] [place] [address]
--- NOTE | 2019-02-23 15:09 | NUR ---
IV REMOVED AND PRESSURE HELD, PT SELF CATH SELF AND INSTRUCTIONS GIVEN
== END 2019-02-23 15:00 | disposition home or self-care (01) ==
LOC: D.OPS 09:00 → D.PAN 11:15 → D.OPS 11:15
PROVIDERS: ATTEND Urology
DX: C61 Malignant neoplasm of prostate (principal); C79.9 Secondary malignant neoplasm of unspecified site; R31.9 Hematuria, unspecified

== ENCOUNTER → 2019-03-20 17:16 | Outpatient (CLI) | payer MEDICARE ==
[2019-02-23 09:22] VITALS: BMI 31.3
[~2019-03-20 17:16] MED LIST changes: +CIPRO250 MG PO
== END | disposition home or self-care (01) ==
LOC: D.LABREF 17:16
PROVIDERS: ATTEND Urology
DX: R31.9 Hematuria, unspecified (principal); R82.5 Elevated urine levels of drugs, medicaments and biological substances

== ENCOUNTER → 2019-03-31 08:13 | Outpatient (CLI) | payer MEDICARE ==
[2019-02-23 09:22] VITALS: BMI 31.3
--- NOTE | ~2019-03-31 | EC ---
PATIENT:MARISELA SMITH DATE OF SERVICE: 03/31/19 SEX: M MEDICAL RECORD: [id number] DATE OF : 47 LOCATION:D.[facility] AGE OF PATIENT: 73 ADMISSION DATE: 03/31/19 REFERRING PHYSICIAN: INTERPRETING PHYSICIAN: SHIVA LEWIS MD ECHOCARDIOGRAM REPORT ECHO CHARGES 4 ECHO COMPLETE Date: 03/31/19 CLINICAL DIAGNOSIS: MURMUR ECHOCARDIOGRAPHIC MEASUREMENTS (adult normal given) AC root (d.<3.7cm) 3.5 cm LV Septum d (<1.2 cm> 1.3 cm Valve Excursion 1.5 cm LV Septum (systole) 2.0 cm Left Atria (s.<4.0cm> 3.7 cm LVPW d(<1.2cm) 1.6 cm RV (d.<2.3cm) 3.5 cm LVPW (sytole) 1.9 cm LV diastole(<5.6CM) 5.8 cm MV E-F(>70mm/sec) cm LV systole 3.5 cm LVOT Diameter 2.0 cm MV exc.(>10mm) 1.9 cm Est.ejection fraction (50-75%) % DOPPLER: LVIT cm/sec A 104 cm/sec E 49.0 cm/sec LA cm/sec RVSP 41 mmHg LVOT 129 cm/sec AOP1/2T 913 m/s Asc. Ao 198 cm/sec RVOT 101 cm/sec RA cm/sec PA 130 cm/sec AV Gradient Peak 15.70mmHg AV Mean 8.59 mmHg AV Area 2.3 cm MV Gradient Peak 4.57 mmHg MV Mean 1.41 mmHg MV Area cm COMMENTS: Kai [place]: 2 JEFERSON LMEA Culvert Installer: 3 Dr. Escobar TAPE# PACS Pericardial Effusion N DATE OF SERVICE: Adequate 2D, color flow, spectral Doppler, and M-Mode. Mild LVH. LV internal dimensions are normal. Wall motion is normal. EF is greater than 55%. Aortic valve is tricuspid, no evidence of stenosis by Doppler interrogation. Mild AI is present as well. Left atrium is normal at 3.7 cm. Mitral valve shows no prolapse. Mild MR. Right-sided chambers grossly normal. Mild TR. ECHOCARDIOGRAM REPORT [id number] MARISELA SMITH TRANSINT:[id number] Voice Confirmation ID: [id number] DOCUMENT ID: [id number] SHIVA LEWIS MD CC: [id number] DICTATION DATE: 04/04/19 1256 SALES PROPERTY MANAGER: 04/04/19 1502 DEP CLI 03/31/19 [place] [id number] [place] [id number]
== END | disposition home or self-care (01) ==
LOC: D.HCCARDIO 08:13
PROVIDERS: ATTEND Internal Medicine Interventional Cardiology
DX: R01.1 Cardiac murmur, unspecified (principal)

== ENCOUNTER → 2019-04-12 16:03 | Outpatient (CLI) | payer MEDICARE ==
[2019-02-23 09:22] VITALS: BMI 31.3
== END | disposition home or self-care (01) ==
LOC: D.LABREF 16:03
PROVIDERS: ATTEND Urology
DX: R82.5 Elevated urine levels of drugs, medicaments and biological substances (principal); D72.829 Elevated white blood cell count, unspecified; R31.9 Hematuria, unspecified

== ENCOUNTER → 2019-04-26 16:45 | Outpatient (CLI) | payer MEDICARE ==
[2019-02-23 09:22] VITALS: BMI 31.3
== END | disposition home or self-care (01) ==
LOC: D.LABREF 16:45
PROVIDERS: ATTEND Urology
DX: R31.9 Hematuria, unspecified (principal); D72.829 Elevated white blood cell count, unspecified

== ENCOUNTER → 2020-01-01 19:28 | Outpatient (CLI) | payer MEDICARE ==
[2019-02-23 09:22] VITALS: BMI 31.3
== END | disposition home or self-care (01) ==
LOC: D.LABREF 19:28
PROVIDERS: ATTEND Urology
DX: N39.0 Urinary tract infection, site not specified (principal)

== ENCOUNTER → 2020-01-18 16:12 | Outpatient (CLI) | payer MEDICARE ==
[2019-02-23 09:22] VITALS: BMI 31.3
== END | disposition home or self-care (01) ==
LOC: D.LABREF 16:12
PROVIDERS: ATTEND Urology
DX: R31.9 Hematuria, unspecified (principal)

== ENCOUNTER → 2020-04-02 13:52 | Outpatient (CLI) | payer MEDICARE ==
[2019-02-23 09:22] VITALS: BMI 31.3
--- NOTE | 2020-04-04 08:17 | EC ---
PATIENT:MARISELA SMITH DATE OF SERVICE: 04/02/20 SEX: M MEDICAL RECORD: [id number] DATE OF : 47 LOCATION:D.[facility] AGE OF PATIENT: 74 ADMISSION DATE: 04/02/20 REFERRING PHYSICIAN: INTERPRETING PHYSICIAN: SHIVA LEWIS MD ECHOCARDIOGRAM REPORT ECHO CHARGES 4 ECHO COMPLETE Date: 04/02/20 CLINICAL DIAGNOSIS: HX OF HTN/CAD/DSYPNEA/MR/TR/AI ECHOCARDIOGRAPHIC MEASUREMENTS (adult normal given) AC root (d.<3.7cm) 3.6 cm LV Septum d (<1.2 cm> 1.2 cm Valve Excursion 1.9 cm LV Septum (systole) 1.4 cm Left Atria (s.<4.0cm> 4.1 cm LVPW d(<1.2cm) 1.3 cm RV (d.<2.3cm) 4.9 cm LVPW (sytole) 1.7 cm LV diastole(<5.6CM) 5.0 cm MV E-F(>70mm/sec) cm LV systole 3.3 cm LVOT Diameter 2.0 cm MV exc.(>10mm) 1.6 cm Est.ejection fraction (50-75%) % DOPPLER: LVIT cm/sec A 73.0 cm/sec E 47.0 cm/sec LA cm/sec RVSP 138 mmHg LVOT 104 cm/sec AOP1/2T m/s Asc. Ao 139 cm/sec RVOT 76 cm/sec RA cm/sec PA 15 cm/sec AV Gradient Peak 7.76 mmHg AV Mean 4.04 mmHg AV Area 2.8 cm MV Gradient Peak 4.82 mmHg MV Mean 0.97 mmHg MV Area cm COMMENTS: Dedicated Driver: 2 JEFERSON LEMA Armhole Presser: 3 Dr. Escobar TAPE# PACS Pericardial Effusion N DATE OF SERVICE: Adequate 2D, color flow imaging, spectral Doppler, and M-Mode. Borderline LVH. LV internal dimension is normal. Wall motion is normal. EF is greater than or equal to 55%. Aortic valve is sclerotic without stenosis by Doppler interrogation. There is mild AI by color flow imaging. Left atrium is mildly dilated at 4.1 cm. Mitral valve shows no prolapse. Trace MR. Right-sided chambers are grossly normal. Trace TR. ECHOCARDIOGRAM REPORT [id number] MARISELA SMITH TRANSINT:[id number] Voice Confirmation ID: [id number] DOCUMENT ID: [id number] SHIVA LEWIS MD at 0817 CC: [id number] DICTATION DATE: 04/02/201625 [employer]ICE: 04/03/20 0158 DEP CLI 04/02/20 [place] [id number] [place] [id number]
== END | disposition home or self-care (01) ==
LOC: D.HCCECHO 13:52
PROVIDERS: ATTEND Internal Medicine Interventional Cardiology
DX: R06.00 Dyspnea, unspecified (principal)

== ENCOUNTER → 2021-04-03 08:11 | Outpatient (CLI) | payer MEDICARE ==
[2019-02-23 09:22] VITALS: BMI 31.3
--- NOTE | 2021-04-05 20:10 | EC ---
PATIENT:MARISELA SMITH DATE OF SERVICE: 04/03/21 SEX: M MEDICAL RECORD: [id number] DATE OF : 47 LOCATION:D.FORMERLY [facility] AGE OF PATIENT: 75 ADMISSION DATE: 04/03/21 REFERRING PHYSICIAN: INTERPRETING PHYSICIAN: SHIVA LEWIS MD ECHOCARDIOGRAM REPORT ECHO CHARGES 4 ECHO COMPLETE Date: 04/03/21 CLINICAL DIAGNOSIS: ASSESS EF/ LVH/TRICUSPID REGURG HX OF DYSPNEA/CAD/HTN ECHOCARDIOGRAPHIC MEASUREMENTS (adult normal given) AC root (d.<3.7cm) 3.7 cm LV Septum d (<1.2 cm> 1.8 cm Valve Excursion 2.0 cm LV Septum (systole) 2.0 cm Left Atria (s.<4.0cm> 4.5 cm LVPW d(<1.2cm) 1.5 cm RV (d.<2.3cm) 3.6 cm LVPW (sytole) 2.0 cm LV diastole(<5.6CM) 5.6 cm MV E-F(>70mm/sec) cm LV systole 3.1 cm LVOT Diameter 2.2 cm MV exc.(>10mm) 1.2 cm Est.ejection fraction (50-75%) % DOPPLER: LVIT cm/sec A 78.0 cm/sec E 50.0 cm/sec LA cm/sec RVSP 35 mmHg LVOT 107 cm/sec AOP1/2T m/s Asc. Ao 140 cm/sec RVOT cm/sec RA cm/sec PA 143 cm/sec AV Gradient Peak 7.84 mmHg AV Mean 4.53 mmHg AV Area 2.7 cm MV Gradient Peak 4.86 mmHg MV Mean 0.81 mmHg MV Area cm COMMENTS: Edge Bander Operator: 2 JEFERSON LEMA Shuttle Veneering Supervisor: 3 Dr. Escobar TAPE# PACS Pericardial Effusion N DATE OF SERVICE: Adequate 2D, color flow imaging, spectral Doppler, and M-Mode. FINDINGS: LVH is present. LV internal dimension upper limits of normal at 5.6 cm. Wall motion appears normal. EF is greater than or equal to 55%. Aortic valve is sclerotic. No evidence of stenosis by Doppler interrogation. Left atrium is dilated at 4.5 cm. Mitral valve shows no prolapse. Trace MR. Right side is grossly normal. Mild TR. ECHOCARDIOGRAM REPORT [id number] MARISELA SMITH TRANSINT:[id number] Voice Confirmation ID: [id number] DOCUMENT ID: [id number] SHIVA LEWIS MD at 2009 CC: [id number] DICTATION DATE: 04/04/21 105 GRADUATE ADVISOR: 04/04/21 1205 DEP CLI 04/03/21 [place] [id number] [place] [id number]
== END | disposition home or self-care (01) ==
LOC: D.HCCECHO 08:11
PROVIDERS: ATTEND Internal Medicine Interventional Cardiology
DX: R06.00 Dyspnea, unspecified (principal)